=== PATIENT | female | born 1990 | race Two or more races ===

== ENCOUNTER 2017-11-24 12:51 | Emergency (ER) | payer OTHER ==
[2017-11-24 13:25] LABS: URINE HCG POC HCG POSITIVE (Negative)
[2017-11-24 13:33] LABS: BILIRUBIN,URINE SMALL (NEG); CLARITY,URINE CLEAR; GLUCOSE,URINE NEGATIVE (NEG); NITRITE,URINE NEGATIVE (NEG); PROTEIN,URINE 30 mg/dL (NEG-TRACE)
[2017-11-24] MEDS: ONDANSETRON PF 4 MG/2 ML VIAL. IV ×2 (13:39→18:16)
[2017-11-24] MEDS: IV NORMAL SALINE 1000ML BAG 1,000 ML IV (13:40)
[2017-11-24] MEDS: MORPHINE SULFATE 2 MG/ML DISP.SYRIN. IV (13:43)
[2017-11-24 13:54] LABS: ADD MAN DIFF? NO
[2017-11-24 13:55] LABS: BASO % 0 % (0-3); EOS # 0.1 x10^3/uL (0.0-0.7); EOS % 1 % (0-3); HEMATOCRIT 31.9 % (36.0-47.0); LYMPH # 0.8 x10^3/uL (1.0-4.8); LYMPH % 8 % (24-48); MEAN CORPUSCULAR HEMOGLOBIN 30 pg (25-35); MEAN CORPUSCULAR HGB CONC 34 g/dL (31-37); MEAN CORPUSCULAR VOLUME 88 fL (79-100); MONO # 0.6 x10^3/uL (0.0-1.1); MONO % 6 % (0-9); NEUT # 8.3 x10^3uL (1.8-7.7); NEUT % 84 % (31-73); PLATELET COUNT 178 x10^3/uL (140-400); RED BLOOD COUNT 3.62 x10^6/uL (3.50-5.40); RED CELL DISTRIBUTION WIDTH 13.9 % (11.5-14.5); WHITE BLOOD COUNT 9.8 x10^3/uL (4.0-11.0)
[2017-11-24 14:06] LABS: COLOR,URINE DK YELLOW
[2017-11-24 14:08] LABS: ANION GAP 8 (6-14); BACTERIA,URINE MANY /HPF (0-FEW); BLOOD UREA NITROGEN 9 mg/dL (7-20); BUN/CREATININE RATIO 13 (6-20); CALCIUM 8.2 mg/dL (8.5-10.1); CARBON DIOXIDE 21 mmol/L (21-32); CHLORIDE 103 mmol/L (98-107); CREATININE 0.7 mg/dL (0.6-1.0); GLUCOSE 99 mg/dL (70-99); POTASSIUM 3.6 mmol/L (3.5-5.1); RBC,URINE OCC /HPF (0-2); SODIUM 132 mmol/L (136-145); SQUAMOUS EPITHELIAL CELL,UR MANY /LPF; WBC,URINE OCC /HPF (0-4)
[2017-11-24 14:13] LABS: ALBUMIN 3.6 g/dL (3.4-5.0); ALK PHOS 48 U/L (46-116); ALT (SGPT) 14 U/L (14-59); AST (SGOT) 10 U/L (15-37); TOTAL BILIRUBIN 0.4 mg/dL (0.2-1.0); TOTAL PROTEIN 7.1 g/dL (6.4-8.2)
[2017-11-24] MEDS: fentaNYL PF VIAL 100 MCG/2 ML VIAL IV (16:52)
== END 2017-11-24 20:22 | disposition home or self-care (01) ==
LOC: ER 12:51
DX: O26.891 Other specified pregnancy related conditions, first trimester (principal); K59.00 Constipation, unspecified; R10.11 Right upper quadrant pain; O99.511 Diseases of the respiratory system complicating pregnancy, first trimester; J45.909 Unspecified asthma, uncomplicated; Z87.891 Personal history of nicotine dependence; Z3A.09 9 weeks gestation of pregnancy
CPT/HCPCS: 36415; 74018; 76801; 80053; 81001; 81025; 84702; 85025; 96374; 96375; 96376; 99285-25; J2270; J2405; J3010; J7030